=== PATIENT | female | born 1950 | race Caucasian/White ===

== ENCOUNTER → 2019-12-01 13:52 | Outpatient (CLI) | payer MEDICARE, SELFPAY ==
--- NOTE | ~2019-12-01 | MM_ITS ---
EXAMINATION: MM screening [facility] BI w maris HISTORY: Screening mammogram TECHNIQUE: Craniocaudal and mediolateral oblique 3-D tomosynthesis images were obtained and synthetic 2-D images were generated. CAD analysis was submitted and interpreted. COMPARISON: No prior mammogram is currently available for comparison. BREAST PARENCHYMAL COMPOSITION: The breasts are almost entirely fatty. FINDINGS: RIGHT BREAST: An approximately 6 mm mass is present in the anterior third of the outer breast 3.5 cm from the nipple. LEFT BREAST: There is possible architectural distortion in the anterior third of the upper outer quad rant of the breast. IMPRESSION: 1. Bilateral breast findings as described above. 2. Additional mammographic views and possible breast ultrasound are recommended. BI-RADS Category 0: Incomplete: Needs additional imaging evaluation. Reviewed, dictated and finalized at location A. KER IMPRESSION: 1. Bilateral breast findings as described above. 2. Additional mammographic views and possible breast ultrasound are recommended . BI-RADS Category 0: Incomplete: Needs additional imaging evaluation.
--- NOTE | ~2019-12-01 | DEXA_ITS ---
Bone Density Report Name: Calli Tse Age: 69 Sex: Female Ethnicity: White Date of : 1950 Indication: osteopenia; height loss; hysterectomy;postmenopausal Referring Provider: Hayden Sandoval Study: Bone densitometry was performed. Exam Date: December 01, 2019 Accession number: [id number] Bone Density: Region BMD T-score Z-score Classification AP Spine (L1-L4) 1.007 -0.4 1.6 Normal Femoral Neck (Left) 0.798 -0.5 1.2 Normal Total Hip (Left) 0.862 -0.7 0.8 Normal Femoral Neck (Right) 0.722 -1.1 0.6 Osteopenia Total Hip (Right) 0.734 -1.7 -0.3 Osteopenia Total Hip Mean 0.798 -1.2 0.3 Osteopenia World Health Organization criteria for BMD impression classify patients as: Normal (T-score at or above -1.0), Osteopenia (T-score between -1.0 and -2.5), or Osteoporosis (T-score at or below -2.5). 10-year Fracture Risk(1): Major Osteoporotic Fracture 7.6% Hip Fracture 0.7% Reported Risk Factors: [place] (), Neck BMD=0.722, BMI=43.6 (1) FRAX(R) Version 3.08. Fracture probability calculated for an untreated patient. Fracture probability may be lower if the patient has received treatment. Previous Exams: Region Exam Age BMD T-score BMD Change BMD Change Date g/cm2 vs Baseline vs Previous AP Spine(L1-L4) 12/01/2019 69 1.007 -0.4 0.039* 0.039* 05/14/2009 58 0.967 -0.7 Total Hip(Left) 12/01/2019 69 0.862 -0.7 0.060 0.126* 05/14/2009 58 0.736 -1.7 -0.066 -0.066 09/16/2004 54 0.802 -1.1 Total Hip(Right) 12/01/2019 69 0.734 -1.7 -0.029 0.003 05/14/2009 58 0.732 -1.7 -0.031 -0.031 09/16/2004 54 0.763 -1.5 *Denotes significance at 95% confidence level, LSC for AP Spine = 0.022 g/cm2, LSC for Total Hip = 0.027 g/cm2 Clinical Information Provided by Patient: Has the following medical conditions: Hysterectomy Patient maximum height was 67 Menopause Age: 44 No regular weight bearing exercise Drinks caffeinated beverages Onset of menses at age 15 Number of children 2 Impression: The patient has low bone mass, based on the Right Total Hip T-score. The patient has an estimated ten-year risk of hip fracture of 0.7% and an estimated ten-year risk of major fracture of 7.6%, based on the WHO FRAX algorithm. No significant bone loss was observed. Discussion: BONE DENSITY IS LOW AT ONE OR MORE SKELETAL SITES. This
== END ==
PROVIDERS: PCP Family Medicine; Visit Provider Family Medicine
DX: Z12.31 Encounter for screening mammogram for malignant neoplasm of breast (principal); Z78.0 Asymptomatic menopausal state; N63.0 Unspecified lump in unspecified breast; I10 Essential (primary) hypertension
CPT/HCPCS: 77063; 77067; 77080

== ENCOUNTER → 2019-12-16 08:37 | Outpatient (CLI) | payer MEDICARE, SELFPAY ==
--- NOTE | ~2019-12-16 | MMUS_ITS ---
EXAMINATION: MM diagnostic mammo BI, US breast RT limited HISTORY: Approximately 6 mm mass reported in anterior third of outer breast 3.5 cm from nipple and po ssible architectural distortion in anterior third of upper outer left breast on 12/01/2019 screening m ammogram examination TECHNIQUE: Additional 3-D tomosynthesis images of both breasts were performed and synthetic 2-D image s were generated. CAD analysis was submitted and interpreted. High resolution targeted right breast u ltrasound was performed. COMPARISON: 12/01/2019 bilateral digital screening mammogram FINDINGS: MAMMOGRAPHIC FINDINGS: No suspicious mass or architectural distortion, skin thickening or retraction or malignant calcificat ion is evident on the left. There is an approximately 4 mm mammographic irregular mass in the anterior aspect of the mid outer ri ght breast approximately 3 cm from the nipple. ULTRASOUND: At 9:00 3.5 cm from the nipple there is a 3.5 x 5 x 4.3 mm irregular hypoechoic mass without internal vascularity or shadowing. Ultrasound-guided biopsy is recommended considering the irregular margins on mammographic and sonographic examinations. IMPRESSION: 1. 3.5 x 5 x 4.3 mm irregular solid right breast mass at 9:00 3.5 cm from nipple 2. Ultrasound-guided biopsy of right breast mass at 9:00 3.5 cm from nipple is recommended. BI-RADS category 4, suspicious findings. Dr. Wright telephoned the results and ultrasound guided biopsy recommendation for right breast 9:00 les ion to Candida Paez on 12/16/2019 at 1000 hours. Reviewed, dictated and finalized at location A. PRESSURE OPERATOR IMPRESSION: 1. 3.5 x 5 x 4.3 mm irregular solid right breast mass at 9:00 3.5 cm from nippl e 2. Ultrasound-guided biopsy of right breast mass at 9:00 3.5 cm from nipple is recommended. BI-RADS category 4, suspicious findings. Dr. Wright telephoned the results and ultrasound guided biopsy recommendation for right breast 9:00 lesion to Candida Paez on 12/16/2019 at 1000 hours.
== END ==
PROVIDERS: PCP Family Medicine; Visit Provider Physician Assistant
DX: R92.8 Other abnormal and inconclusive findings on diagnostic imaging of breast (principal)
CPT/HCPCS: 76642; 77066

== ENCOUNTER 2020-03-24 00:29 | Outpatient (CLI) | payer MEDICARE, SELFPAY ==
[2020-03-24 17:33] LABS: SARS-CoV-2 RNA PCR Negative
== END 2020-03-24 00:30 | disposition home or self-care (01) ==
LOC: ANHCOVIDDT 00:29
PROVIDERS: PCP Family Medicine; Visit Provider Internal Medicine Gastroenterology
DX: Z01.812 Encounter for preprocedural laboratory examination (principal); Z20.828 Contact with and (suspected) exposure to other viral communicable diseases
CPT/HCPCS: 87635; C9803; U0003

== ENCOUNTER 2020-03-26 00:56 | Day surgery (SDC) | payer MEDICARE, SELFPAY ==
[2020-03-19 14:10] VITALS: BMI 42.0
[2020-03-26 07:40] VITALS: BP 149/96; PULSE 96; RESP 18; TEMP 37; O2SAT 100
[2020-03-26] MEDS: LACTATED RINGERS 1,000 ML 150 ML IV CONT (08:15)
--- NOTE | 2020-03-26 08:21 | WPDANESEPPF ---
Anes - Initial Pre Proc Eval Procedure: Operation Date: 03/26/20 09:00 Proposed Procedures p Screening Colonoscopy - Carter Montano MD Date/Time: 03/26/20 08:21 Surgeon: Carter Montano MD Pre Op Diagnosis: Neoplasm Screening Patient Data Age: 69 Gender: F Height: 5 ft 6 in Weight: 117.7 kg Last Vital Signs Temp 37.0 C 03/26/20 07:40 Pulse 96 03/26/20 07:40 Resp 18 03/26/20 07:40 BP 149/96 H 03/26/20 07:40 Pulse Ox 100 03/26/20 07:40 Allergies Allergy/AdvReac Type Severity Reaction Status Date / Time codeine Allergy Mild Rash Verified 03/26/20 08:01 POISON WAYNE Allergy RASH Uncoded 03/26/20 08:01 Home Medications Medication Instructions Recorded Confirmed Type acetaminophen 650 mg 1,300 mg PO Q12H 09/22/19 03/26/20 History tablet,extended release omeprazole 20 mg capsule,delayed 20 mg PO DAILY 09/22/19 03/19/20 History release ferrous sulfate 325 mg (65 mg 325 mg PO DAILY #30 tablet 12/31/19 03/26/20 Rx iron) tablet atorvastatin 10 mg tablet 10 mg PO DAILY #30 tablet 03/12/20 03/26/20 Rx lisinopril 10 See Rx Instructions .ROUTE 03/16/20 03/19/20 Rx mg-hydrochlorothiazide 12.5 mg .COMPLEX #30 tablet tablet fexofenadine [Shonda Allergy] 60 mg PO Q12H 03/19/20 03/26/20 History melatonin 1 mg PO HS PRN 03/19/20 03/26/20 History Patient hx anesthesia problems: none Family hx anesthesia problems: none PMFSH Past Medical History Medical History Anemia Blood glucose elevated Breast mass, right Elevated liver enzymes Fatty liver GERD (gastroesophageal reflux disease) HTN (hypertension), benign Leukopenia Mixed hyperlipidemia Osteoarthritis UTI (urinary tract infection) Surgical History Surgical History History of Donis-en-Y gastric bypass 2002 Status post hysterectomy with oophorectomy 1995 Status post laparoscopic cholecystectomy 1993 Status post lumbar laminectomy x3 Status post tonsillectomy 1955 Family History Family History Unknown Heart disease Diabetes mellitus Social History Social History Smoking packs per day: 1 Smoking cigarettes per day: 20.0 Years smoked: 20 Smoking pack-years: 20.00 Smoking status: Former smoker Tobacco type: cigarettes Second hand tobacco smoke exposure: No Smoking end date: 10/15/79 Alcohol intake: current Drinks per week: 1 Substance use: never Substance use type: does not use Gender identity (if verbalized by the patient): Female Anes - Eval Final PreProcedure Day of Procedure 03/26/20 08:21 Patient weight: morbidly obese Heart: regular rate and rhythm Lungs: clear to auscultation Airway: Mallampati scale class II Neurological: alert and oriented Last oral intake: >/= 8 hours ASA classification: III Emergent: no Anesthetic plan: proceed Anesthesia type and monitoring: general GIVS and standard monitoring Informed Consent: The patient's anesthetic plan and its attendant risks and benefits were discussed with the patient/family/POA. Questions were solicited and answers provided to the satisfaction of the patient/family/POA.
--- NOTE | 2020-03-26 08:42 | PM.HPGS ---
History of Present Illness History of Present Illness Consent: Risks, benefits, and alternatives have been discussed and questions answered. Patient agrees to proceed with procedure. Chief complaint: Neoplasm Screening Narrative: Calli Tse is a 69 year old female Referred for screening colonoscopy [facility] Past Medical History Medical History Anemia Blood glucose elevated Breast mass, right Elevated liver enzymes Fatty liver GERD (gastroesophageal reflux disease) HTN (hypertension), benign Leukopenia Mixed hyperlipidemia Osteoarthritis UTI (urinary tract infection) Surgical History Surgical History History of Donis-en-Y gastric bypass 2002 Status post hysterectomy with oophorectomy 1995 Status post laparoscopic cholecystectomy 1993 Status post lumbar laminectomy x3 Status post tonsillectomy 1956 Family History Family History Unknown Heart disease Diabetes mellitus Social History Social History Smoking packs per day: 1 Smoking cigarettes per day: 20.0 Years smoked: 20 Smoking pack-years: 20.00 Smoking status: Former smoker Tobacco type: cigarettes Second hand tobacco smoke exposure: No Smoking end date: 10/15/79 Alcohol intake: current Drinks per week: 1 Substance use: never Substance use type: does not use Gender identity (if verbalized by the patient): Female Meds Home Medications and Allergies Home Medications Medication Instructions Recorded Confirmed Type acetaminophen 650 mg 1,300 mg PO Q12H 09/22/19 03/26/20 History tablet,extended release omeprazole 20 mg capsule,delayed 20 mg PO DAILY 09/22/19 03/19/20 History release ferrous sulfate 325 mg (65 mg 325 mg PO DAILY #30 tablet 12/31/19 03/26/20 Rx iron) tablet atorvastatin 10 mg tablet 10 mg PO DAILY #30 tablet 03/12/20 03/26/20 Rx lisinopril 10 See Rx Instructions .ROUTE 03/16/20 03/19/20 Rx mg-hydrochlorothiazide 12.5 mg .COMPLEX #30 tablet tablet fexofenadine [Shonda Allergy] 60 mg PO Q12H 03/19/20 03/26/20 History melatonin 1 mg PO HS PRN 03/19/20 03/26/20 History Allergies Allergy/AdvReac Type Severity Reaction Status Date / Time codeine Allergy Mild Rash Verified 03/26/20 08:01 POISON WAYNE Allergy RASH Uncoded 03/26/20 08:01 Vital Signs Vital Signs - 24 hr 03/26/20 07:40 Temperature 37.0 C Pulse Rate 96 Respiratory Rate 18 Blood Pressure 149/96 H Pulse Oximetry 100 Exam Resp: Auscultation: clear to auscultation bilaterally Cardio: Rate: regular rate Rhythm: regular rhythm GI: GI Palp: Yes Soft to palpation and No Tenderness to palpation present (GI) Assessment and Plan Assessment and plan (1) Colon cancer screening: Code(s): Z12.11 - Encounter for screening for malignant neoplasm of colon Status: Acute Assessment and Plan: Colonoscopy with possible biopsy or polypectomy or cautery or injection of substances.
[2020-03-26] MEDS: SIMETHICONE ORAL SUSPENSION 20 MG/0.3 ML 30 ML BOTTLE 0.6 ML IRRIGATION (09:03)
[2020-03-26 09:13] VITALS: BP 123/69; PULSE 75; RESP 20; O2SAT 99
[2020-03-26 09:23] VITALS: BP 123/49; PULSE 74; RESP 20; O2SAT 100
[2020-03-26 09:33] VITALS: BP 127/69; PULSE 69; RESP 20; O2SAT 100
== END 2020-03-26 09:55 | disposition home or self-care (01) ==
PROVIDERS: PCP Family Medicine; Visit Provider Internal Medicine Gastroenterology
PROC: 0DJD8ZZ Inspection of Lower Intestinal Tract, Via Natural or Artificial Opening Endoscopic (ICD-10-PCS; CPT 45378; principal; 2020-03-26 09:00)
DX: Z12.11 Encounter for screening for malignant neoplasm of colon (principal); I10 Essential (primary) hypertension; E78.2 Mixed hyperlipidemia; K21.9 Gastro-esophageal reflux disease without esophagitis; K76.0 Fatty (change of) liver, not elsewhere classified; D64.9 Anemia, unspecified; Z87.891 Personal history of nicotine dependence; E66.01 Morbid (severe) obesity due to excess calories; Z68.41 Body mass index [BMI] 40.0-44.9, adult
CPT/HCPCS: G0121; J2704; J7120

== ENCOUNTER 2020-04-05 17:29 | Outpatient (CLI) | payer MEDICARE, SELFPAY ==
--- NOTE | ~2020-04-05 | XR_ITS ---
EXAMINATION: XR knee LT 2V DATE: 04/05/2020 17:53 INDICATION: Left knee pain TECHNIQUE: Two views of the left knee were obtained. COMPARISON: None. FINDINGS: Alignment is normal. No fracture or osteochondral lesion. There is moderate tricompartmenta l osteoarthritis characterized by marginal osteophytes an joint space narrowing. No joint effusion/sy novitis. Soft tissues are unremarkable. IMPRESSION: 1. Osteoarthritis without acute osseous abnormality. Reviewed, dictated and finalized at location A.
== END 2020-04-05 17:30 | disposition home or self-care (01) ==
PROVIDERS: PCP Family Medicine; Visit Provider Physician Assistant
DX: M17.12 Unilateral primary osteoarthritis, left knee (principal)
CPT/HCPCS: 73560

== ENCOUNTER 2020-04-20 10:05 | Outpatient (CLI) | payer MEDICARE, SELFPAY ==
--- NOTE | ~2020-04-20 | MMUS_ITS ---
EXAMINATION: US breast biopsy RT w image, MM post biopsy invasive RT DATE: 04/20/2020 11:12 (accession [id number]), 04/20/2020 11:17 (accession [id number]) INDICATION: Indeterminate right breast mass. Ultrasound-guided core biopsy is requested to evaluate for malignancy. TECHNIQUE AND FINDINGS: The risks and potential benefits of the procedure were discussed with the patient including bleeding and infection. A time out was performed. The skin of the right breast was prepared and draped in usua l sterile fashion. 1% lidocaine was used for superficial anesthesia. 1% lidocaine with epinephrine wa s used for deep anesthesia. A vacuum-assisted biopsy gun needle was advanced through to the outer edge of the region of interest from an inferior approach utilizing sonographic guidance. A total of one tissue core samples were obt ained through the lesion. The lesion was no longer visible after the first sampling. A tissue marker clip was then placed at the biopsy site. Hemostasis was achieved. A sterile bandage was applied. The patient tolerated procedure well and there was no evidence of immediate complication. The patient was given verbal instructions to return to the Emergency Department in the event of severe breast pa in or rapid breast enlargement. A two view right breast mammogram was obtained to document tissue mar ker clip placement. IMPRESSION: 1. Successful ultrasound-guided vacuum-assisted biopsy of right breast mass with tissue marker placem ent. Reviewed, dictated and finalized at location A. IMPRESSION: 1. Successful ultrasound-guided vacuum-assisted biopsy of right breast mass wit h tissue marker placement.
== END 2020-04-20 10:06 | disposition home or self-care (01) ==
PROVIDERS: PCP Family Medicine; Visit Provider Surgery
DX: R92.8 Other abnormal and inconclusive findings on diagnostic imaging of breast (principal)
CPT/HCPCS: 19083; 88305

== ENCOUNTER 2020-05-31 13:46 | Outpatient (CLI) | payer MEDICARE, SELFPAY ==
--- NOTE | ~2020-05-31 | US_ITS ---
EXAMINATION: US venous doppler [facility] DATE: 05/31/2020 14:24 INDICATION: Left lower limb localized edema. TECHNIQUE: Grayscale ultrasound images without and with compression and Doppler ultrasound images of the left lower extremity veins were obtained. COMPARISON: None. FINDINGS: The visualized portions of left common femoral vein, profunda (deep) femoral vein, femoral vein, popl iteal vein, peroneal veins, posterior tibial veins, and greater saphenous vein outflow are patent. Th ere is a moderate-sized Escobedo's cyst. IMPRESSION: 1. No deep venous thrombosis. 2. Moderate-sized left Escobedo's cyst. Reviewed, dictated and finalized at location A.
== END 2020-05-31 13:47 | disposition home or self-care (01) ==
LOC: ANHIMG 13:54
PROVIDERS: PCP Family Medicine; Visit Provider Physician Assistant
DX: R60.0 Localized edema (principal); M71.22 Synovial cyst of popliteal space [Baker], left knee
CPT/HCPCS: 93971

== ENCOUNTER 2020-06-16 09:04 | Outpatient (CLI) | payer MEDICARE, SELFPAY ==
--- NOTE | 2020-06-16 09:07 | ECG_ITS ---
Measurements Intervals [place] Rate: 71 P: 22 MD: 191 QRS: 8 QRSD: 79 T: 28 QT: 393 QTc: 430 Interpretive Statements SINUS RHYTHM RSR' IN V1 OR V2, PROBABLY NORMAL VARIANT NORMAL ECG Electronically Signed On 06-16-2020 9:24:22 CDT by Raul Hawkins D.O.
[2020-06-16 09:28] LABS: Hemoglobin 12.6 g/dL (12.0-15.0)
[2020-06-16 09:39] LABS: Anion Gap 8 mmol/L (8-16); Blood Urea Nitrogen 13 mg/dL (7-17); Carbon Dioxide 27 mmol/L (22-30); Chloride 103 mmol/L (98-107); Estimated Glomerular Filt Rate > 60; Glucose 114 mg/dL (65-105); Potassium 4.7 mmol/L (3.4-5.0); Sodium 138 mmol/L (137-145)
== END 2020-06-16 09:05 | disposition home or self-care (01) ==
PROVIDERS: Anesthesiology; PCP Family Medicine; Visit Provider Orthopaedic Surgery
DX: D64.9 Anemia, unspecified (principal); I10 Essential (primary) hypertension; Z01.818 Encounter for other preprocedural examination
CPT/HCPCS: 36415; 80048; 85014; 85018; 93005

== ENCOUNTER 2020-06-21 00:53 | Outpatient (CLI) | payer MEDICARE, SELFPAY ==
--- NOTE | 2020-06-18 14:45 | PM.IMHP ---
H&P: HPI History of Present Illness Date/Time: 06/18/20 14:45 Chief complaint: preop covid Narrative: Calli Tse is a 69 year old female Who presents with left knee pain. Patient has posteriorly and medially in the left knee. This has been ongoing for several months, she reports locking and catching medially with limited activity due to her pain. She reports pain with ambulation twisting or turning squatting kneeling going up and down stairs makes her pain worse. She has tried a course of physical therapy cortisone and anti-inflammatories without significant relief. The patient then underwent an MRI scan which shows lateral meniscus to be intact stabilizing ligaments are also intact but she does have an MCL strain. There is also noted to be a large effusion and a Escobedo cyst. 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 The medial meniscus shows a posterior horn tear. The patient has failed conservative measures and has discuss further treatment options in detail with Dr. Hernández she is aware she has pre-existing osteoarthritis and may not get full relief of her knee pain from knee arthroscopy however she would like to proceed. Review of Systems Review of Systems: All systems reviewed & are unremarkable except as noted in HPI and below PMFSH Past Medical History Medical History Anemia Blood glucose elevated Breast mass, right Cough Edema of left lower extremity Elevated liver enzymes Fatty liver GERD (gastroesophageal reflux disease) HTN (hypertension), benign IFG (impaired fasting glucose) Left knee pain Leukopenia Mixed hyperlipidemia Osteoarthritis UTI (urinary tract infection) Surgical History Surgical History H/O breast biopsy History of Donis-en-Y gastric bypass 2002 Status post hysterectomy with oophorectomy 1995 Status post laparoscopic cholecystectomy 1993 Status post lumbar laminectomy x3 Status post tonsillectomy 1956 Family History Family History Unknown Heart disease Diabetes mellitus Social History Social History Smoking packs per day: 1 Smoking cigarettes per day: 20.0 Years smoked: 20 Smoking pack-years: 20.00 Smoking status: Former smoker Tobacco type: cigarettes Second hand tobacco smoke exposure: No Smoking end date: 10/15/84 Alcohol intake: current Drinks per week: 1 Substance use: never Substance use type: does not use Gender identity (if verbalized by the patient): Female Spiritual care concerns: No Meds Home Medications and Allergies Home Medications Medication Instructions Recorded Confirmed Type acetaminophen 650 mg 1,300 mg PO Q12H PRN 09/22/19 06/14/20 History tablet,extended release omeprazole 20 mg capsule,delayed 20 mg PO QAM 09/22/19 06/14/20 History release ferrous sulfate 325 mg (65 mg 325 mg PO DAILY #30 tablet 04/29/20 06/14/20 Rx iron) tablet levocetirizine 5 mg tablet 5 mg PO HS 05/03/20 06/14/20 History atorvastatin 10 mg PO HS 06/14/20 06/14/20 History hydrochlorothiazide 12.5 mg PO QAM 06/14/20 06/14/20 History ibuprofen 600 mg PO BID PRN 06/14/20 06/14/20 History melatonin 10 mg PO HS 06/14/20 06/14/20 History valsartan 40 mg PO QAM 06/14/20 06/14/20 History Allergies Allergy/AdvReac Type Severity Reaction Status Date / Time codeine Allergy Mild Itching/jayce Verified 06/14/20 13:16 h POISON WAYNE Allergy Mild RASH/ITCHIN Uncoded 06/14/20 13:16 G Exam Narrative: Exam Narrative: The patient is a well-developed well-nourished female no acute distress. She is alert and oriented x3. Normal mood and affect. HEENT exam within normal limits. Heart regular rate rhythm. Lungs clear auscultation. Abdomen b
[2020-06-21 16:32] LABS: SARS-CoV-2 RNA PCR Negative
== END 2020-06-21 00:54 | disposition home or self-care (01) ==
LOC: ANHCOVIDDT 00:53
PROVIDERS: PCP Family Medicine; Visit Provider Orthopaedic Surgery
DX: Z01.812 Encounter for preprocedural laboratory examination (principal); Z20.828 Contact with and (suspected) exposure to other viral communicable diseases
CPT/HCPCS: 87635; C9803; U0003

== ENCOUNTER 2020-06-22 17:21 | Emergency (ER) | payer MEDICARE, SELFPAY ==
--- NOTE | 2020-06-22 17:29 | ED.GENADULT ---
HPI - General Adult General Chief complaint: Neck Pain/Injury Stated complaint: severe neck pain Time Seen by Provider: 06/22/20 17:35 Source: patient and RN notes reviewed Mode of arrival: ambulatory Limitations: no limitations History of Present Illness HPI narrative: 69-year-old female presents with concern for right neck and shoulder tension, spasm, pain. Reports she woke up this morning with pain that has been increasingly worsening throughout the day. Reports she has used ice, Biofreeze. Reports that she is not able to take any medication due to her surgery tomorrow. Denies any other intervention. Denies weakness in any extremity, headache. She denies injury or trauma. Reports history of having neck muscle spasms. MD complaint: Neck pain Related Data Home Medications Medication Instructions Recorded Confirmed acetaminophen 650 mg 1,300 mg PO Q12H PRN 09/22/19 06/14/20 tablet,extended release levocetirizine 5 mg tablet 5 mg PO HS 05/03/20 06/14/20 atorvastatin 10 mg PO HS 06/14/20 06/22/20 hydrochlorothiazide 12.5 mg PO QAM 06/14/20 06/22/20 ibuprofen 600 mg PO BID PRN 06/14/20 06/14/20 melatonin 10 mg PO HS 06/14/20 06/14/20 valsartan 40 mg PO QAM 06/14/20 06/22/20 Allergies Allergy/AdvReac Type Severity Reaction Status Date / Time codeine Allergy Mild Itching/jayce Verified 06/22/20 17:35 h POISON WAYNE Allergy Mild RASH/ITCHIN Uncoded 06/14/20 13:16 G Review of Systems Review of Systems: Narrative: CONSTITUTIONAL: Denies malaise, chills, sweats, or fever. EYES: Denies visual changes CARDIOVASCULAR: Denies chest pain, palpitations, or edema. RESPIRATORY: Denies cough or dyspnea. SKIN: Denies bruising, redness MUSCULOSKELETAL: Reports right shoulder and neck muscle spasm and pain NEUROLOGIC: Denies numbness, weakness, or headache. All systems reviewed & are unremarkable except as noted in HPI and below [facility] Social History Social History Smoking packs per day: 1 Smoking cigarettes per day: 20.0 Years smoked: 20 Smoking pack-years: 20.00 Smoking status: Former smoker Tobacco type: cigarettes Second hand tobacco smoke exposure: No Smoking end date: 10/15/84 Alcohol intake: current Drinks per week: 1 Substance use: never Substance use type: does not use Gender identity (if verbalized by the patient): Female Spiritual care concerns: No Comments At time of signature, agree with nursing past medical, surgical, social and family history. There is no relevant family history pertinent to the presenting complaint Exam Narrative: Exam Narrative: GENERAL: Well-appearing, well-nourished, and in no acute distress. HEAD: Normocephalic, atraumatic. EYES: PERRLA and EOMI. NECK: Supple. No lymphadenopathy. CHEST: Clear to auscultation. No respiratory distress. HEART: Regular rate and rhythm. Distal pulses palpable and equal, cap refill <3 seconds MUSCULOSKELETAL: Normal range of motion and strength in all extremities. Normal sensation in dermatomal distributions with sensitivity to light touch and pain. No midline neck tenderness to palpation. No paraspinal tenderness. SKIN: Warm, dry, no rash. No ecchymosis, erythema, open wounds to neck NEURO: No focal deficits. Alert and oriented x3. Reflexes intact. Normal gait. PSYCH: Normal mood and affect Course Course Emergency Course: Patient is aware of diagnosis, understands and agrees to treatment plan. Anticipatory guidance given. Patient agrees to follow-up as directed and is aware of reasons to seek care at the emergency department. Portions of this record may have been created with voice recognition software Vital Signs Vital signs: Vital Signs Temperature 98.9 F 06/22/20 17:31 Pulse Rate 115 H 06/22/20 17:31 Respiratory Rate 16 06/22/20 17:31 Blood Pressure 155/94 H 06/22/20 17:31 Pulse Oximetry 99 06/22/20 17:31 Temperature 98.9 F 06/22/20 17:31
[2020-06-22 17:31] VITALS: BP 155/94; PULSE 115; RESP 16; TEMP 37.2; O2SAT 99
[2020-06-22 17:55] VITALS: BP 150/90; PULSE 95; RESP 20; O2SAT 100
== END 2020-06-22 17:56 | disposition home or self-care (01) ==
PROVIDERS: Emergency Provider Nurse Practitioner; PCP Family Medicine
DX: M54.2 Cervicalgia (principal); Z87.891 Personal history of nicotine dependence; M25.519 Pain in unspecified shoulder; E78.00 Pure hypercholesterolemia, unspecified; I10 Essential (primary) hypertension; Z98.84 Bariatric surgery status; K21.9 Gastro-esophageal reflux disease without esophagitis; D64.9 Anemia, unspecified
CPT/HCPCS: 99213; G0463

== ENCOUNTER 2020-06-23 00:39 | Day surgery (SDC) | payer MEDICARE, SELFPAY ==
[2020-06-14 13:22] VITALS: BMI 43.2
[2020-06-23] VITALS (8 sets, daily range): BP systolic 115–174; BP diastolic 54–88; PULSE 72–92; RESP 10–20; TEMP 36.2–36.3; O2SAT 95–100
[2020-06-23] MEDS: LACTATED RINGERS 1,000 ML 30 ML IV CONT (06:30)
[2020-06-23] MEDS: ACETAMINOPHEN 500 MG TABLET 1000 MG PO (06:52)
[2020-06-23] MEDS: KETOROLAC 15 MG/ML VIAL (*BKC) IV PUSH (06:53)
--- NOTE | 2020-06-23 06:55 | WPDANESEPPF ---
Anes - Initial Pre Proc Eval Procedure: Operation Date: 06/23/20 07:30 Proposed Procedures p Left Knee Arthroscopy, Partial Medial Meniscectomy,Proceed As Indicated - Дмитрий Hernández MD Date/Time: 06/23/20 06:55 Surgeon: Дмитрий Hernández MD Pre Op Diagnosis: medial meniscus tear left knee Patient Data Age: 69 Gender: F Height: 1.65 m Weight: 120.1 kg Allergies Allergy/AdvReac Type Severity Reaction Status Date / Time codeine Allergy Mild Itching/jayce Verified 06/23/20 06:00 h POISON WAYNE Allergy Mild RASH/ITCHIN Uncoded 06/23/20 06:00 G Home Medications Medication Instructions Recorded Confirmed Type acetaminophen 650 mg 1,300 mg PO Q12H PRN 09/22/19 06/23/20 History tablet,extended release ferrous sulfate 325 mg (65 mg 325 mg PO DAILY #30 tablet 04/29/20 06/23/20 Rx iron) tablet levocetirizine 5 mg tablet 5 mg PO HS 05/03/20 06/23/20 History atorvastatin 10 mg PO HS 06/14/20 06/23/20 History hydrochlorothiazide 12.5 mg PO QAM 06/14/20 06/23/20 History ibuprofen 600 mg PO BID PRN 06/14/20 06/23/20 History melatonin 10 mg PO HS 06/14/20 06/23/20 History valsartan 40 mg PO QAM 06/14/20 06/23/20 History tramadol 100 mg PO Q6H PRN 06/23/20 06/23/20 History ECG: Date of Service: 06/16/20 Procedure(s): CA 12 lead EKG Accession Number(s): [id number] cc: ~ Measurements Intervals [place] Rate: 71 P: 22 MS: 191 QRS: 8 QRSD: 79 T: 28 QT: 393 QTc: 430 Interpretive Statements SINUS RHYTHM RSR' IN V1 OR V2, PROBABLY NORMAL VARIANT NORMAL ECG Electronically Signed On 06-16-2020 9:24:22 CDT by Raul Hawkins D.O. Dictated By: Raul Hawkins DO 06/16/20 0943 Patient hx anesthesia problems: none Family hx anesthesia problems: none PMFSH Past Medical History Medical History (Updated 06/23/20 @ 06:56 by Tor Louis MD) Anemia Blood glucose elevated Breast mass, right Cough Edema of left lower extremity Elevated liver enzymes Fatty liver GERD (gastroesophageal reflux disease) HTN (hypertension), benign IFG (impaired fasting glucose) Left knee pain Leukopenia Mixed hyperlipidemia Morbid obesity with BMI of 40.0-44.9, adult Osteoarthritis UTI (urinary tract infection) Surgical History Surgical History H/O breast biopsy History of Donis-en-Y gastric bypass 2002 Status post hysterectomy with oophorectomy 1995 Status post laparoscopic cholecystectomy 1993 Status post lumbar laminectomy x3 Status post tonsillectomy 1956 Social History Social History Smoking packs per day: 1 Smoking cigarettes per day: 20.0 Years smoked: 20 Smoking pack-years: 20.00 Smoking status: Former smoker Tobacco type: cigarettes Second hand tobacco smoke exposure: No Smoking end date: 10/15/79 Alcohol intake: current Drinks per week: 1 Substance use: never Substance use type: does not use Living arrangements: with friend(s) Gender identity (if verbalized by the patient): Female Spiritual care concerns: No Anes - Eval Final PreProcedure Day of Procedure 06/23/20 06:55 Patient weight: morbidly obese Heart: regular rate and rhythm Lungs: clear to auscultation and normal air movement Airway: Mallampati scale class II Neurological: alert and oriented Last oral intake: >/= 8 hours ASA classification: III Emergent: no Anesthetic plan: proceed Anesthesia type and monitoring: general LMA and ETT Informed Consent: The patient's anesthetic plan and its attendant risks and benefits were discussed with the patient/family/POA. Questions were solicited and answers pro
--- NOTE | 2020-06-23 07:11 | WPDHPUPDATE1 ---
History and Physical Update Update Date/Time: 06/23/20 07:11 History and Physical has been reviewed, including an updated exam of the patient. There are NO changes in the patient's condition. Risks, benefits, and alternatives have been discussed and questions answered. Patient agrees to proceed with procedure.
[2020-06-23] MEDS: ceFAZolin 3 GM/D5W 100 ML 100 ML IVPB (07:25)
[2020-06-23] MEDS: LIDO 1%/EPINEPHRINE 1:100,000 20 ML VIAL INFILTRATE (07:41)
--- NOTE | 2020-06-23 08:09 | PM.PROC ---
Procedure Note - Detailed Date of procedure: 06/23/20 Pre-op diagnosis: medial meniscus tear left knee Post-op diagnosis: same Procedure performed: [Left] knee arthroscopy with partial meniscetomy Description of procedure: Patient brought to the operating room and anesthetic was administered. The knee was steriley prepped and drapped in the usual manner. Standard portals were used. Superior medial portal was used for the outflow cannula, inferior lateral portal was used for the scope, inferior medial portal was used for the instruments. Arthroscopy was performed, the patellar femoral joint degenerative changes. The medial compartment showed a complex tear. The lateral compartment showed fraying. The ACL was intact. Using baskets and keyona the meniscal tear was trimmed back to a stable base so the nothing further could be pulled into the joint. Any loose or delaminated fragments were gently trimmed to a stable base. At this point the instruments were withdrawn, sutures placed and patient left the operating room in satisfactory condition. Anesthesia: GETA Surgeon: Дмитрий Hernández MD Estimated blood loss (mL): 20 Drains: No Packing: No Pathology: none sent Complications: No immediate complications Condition: stable Disposition: PACU
== END 2020-06-23 09:50 | disposition home or self-care (01) ==
PROVIDERS: PCP Family Medicine; Visit Provider Orthopaedic Surgery
PROC: (CPT 29870; principal; 2020-06-23 07:30)
DX: M23.332 Other meniscus derangements, other medial meniscus, left knee (principal); D64.9 Anemia, unspecified; I10 Essential (primary) hypertension; K76.0 Fatty (change of) liver, not elsewhere classified; K21.9 Gastro-esophageal reflux disease without esophagitis; E78.2 Mixed hyperlipidemia; E66.01 Morbid (severe) obesity due to excess calories; Z68.41 Body mass index [BMI] 40.0-44.9, adult; Z98.84 Bariatric surgery status; Z87.891 Personal history of nicotine dependence
CPT/HCPCS: 29881; 36415; 80048; 85014; 85018; 93005; A9270; J0690; J1100; J1885; J2250; J2405; J2704; J3010; J7120

== ENCOUNTER 2020-09-25 06:46 | Outpatient (NON) | payer MEDICARE, SELFPAY ==
[2020-09-27 18:35] LABS: SARS-CoV-2 RNA PCR Positive
== END 2020-09-25 06:47 ==
LOC: ANHCOVIDDT 06:49
PROVIDERS: PCP Family Medicine; Visit Provider Family Medicine
DX: U07.1 COVID-19 (principal)
CPT/HCPCS: 87635; C9803; U0003

== ENCOUNTER → 2022-08-02 13:41 | Outpatient (CLI) | payer OTHER, SELFPAY ==
--- NOTE | ~2022-08-02 | XR_ITS ---
EXAM: XR foot LT min 3V DATE: 08/02/2022 13:57 HISTORY: no injury left foot pain across all metatarsals . COMPARISON: None available. FINDINGS: Decreased mineralization. No fracture or dislocation. No lytic or blastic lesion. Mild dipti lux valgus. Mild degenerative change at the first MTP joint. No erosion or periosteal change. Soft ti ssues within normal limits. IMPRESSION: No acute osseous finding in the left foot. Reviewed, dictated and finalized at location K.
== END ==
PROVIDERS: PCP Family Medicine; Visit Provider Nurse Practitioner Family
DX: M79.672 Pain in left foot (principal)
CPT/HCPCS: 73630

== ENCOUNTER → 2024-06-23 09:25 | Outpatient (REF) | payer MEDICARE, SELFPAY | LOC: ANHLAB 09:25 | PROVIDERS: PCP Family Medicine; Visit Provider Plastic Surgery | DX: C43.71 Malignant melanoma of right lower limb, including hip (principal); L82.1 Other seborrheic keratosis | CPT/HCPCS: 88305 ==

== ENCOUNTER → 2024-07-28 14:29 | Outpatient (REF) | payer MEDICARE, SELFPAY | LOC: ANHLAB 14:29 | PROVIDERS: PCP Family Medicine; Visit Provider Physician Assistant Surgical | DX: D48.5 Neoplasm of uncertain behavior of skin (principal) | CPT/HCPCS: 88305; 88342 ==

== ENCOUNTER 2025-03-09 10:04 | Emergency (ER) | payer MEDICARE, SELFPAY ==
--- NOTE | ~2025-03-09 | XR_ITS ---
HISTORY: Twisting injury, fall yesterday COMPARISON: 04/05/2020 TECHNIQUE: 3 views of the left knee were performed FINDINGS: No acute or subacute fracture, erosion, lytic or sclerotic lesion. Medial and lateral tibiofemoral joint space narrowing is identified. A small suprapatellar joint effusion is identified (an interval change from prior). The infrapatellar joint space is clear. IMPRESSION: Degenerative disease, unchanged now with development of a suprapatellar joint effusion, without acute fracture. Reviewed, dictated and finalized at location A. IMPRESSION: Degenerative disease, unchanged now with development of a suprapat ellar joint effusion, without acute fracture.
--- NOTE | ~2025-03-09 | XR_ITS ---
HISTORY: Twisting injury, fall yesterday COMPARISON: None TECHNIQUE: 3 views of the left ankle were performed FINDINGS: No acute fracture or dislocation. Mild anterolateral soft tissue swelling. The ankle mortise is preserved. Bone mineralization is age-appropriate. IMPRESSION: Soft tissue swelling, without acute fracture. Reviewed, dictated and finalized at location A.
[2025-03-09 10:17] VITALS: BP 144/61; PULSE 62; RESP 16; TEMP 37.1; O2SAT 98
--- NOTE | 2025-03-09 10:31 | ED.LOWEXIN ---
HPI - Extremity Injury (Lower) General Chief Complaint: Extremity Injury, Lower Stated Complaint: fell on left leg and ankle Time Seen by Provider: 03/09/25 10:41 Source: patient, RN notes reviewed and old records reviewed Mode of arrival: ambulatory Limitations: no limitations History of Present Illness HPI Narrative: 74-year-old female presents to the [facility] with complaints of left knee and left ankle pain. States that she slipped on a board yesterday twisted her knee 1 way ankle the opposite. Has been taking ibuprofen and Tylenol. Mild swelling noted to the lateral ankle and lateral knee. Onset (ago): day(s) (1) Related Data Home Medications ?Medication ?Instructions ?Recorded ?Confirmed ?Last Taken ?Type melatonin 10 mg tablet 10 mg PO HS 06/14/20 12/10/24 06/18/20 History aspirin 81 mg capsule 81 mg PO DAILY 04/30/24 12/10/24 Unknown History omeprazole 20 mg capsule,delayed 20 mg PO DAILY 04/30/24 12/10/24 Unknown History release Allergies Allergy/AdvReac Type Severity Reaction Status Date / Time codeine Allergy Mild Itching/jayce Verified 03/09/25 10:39 h poison syed extract Allergy Mild Rash Verified 03/09/25 10:39 Review of Systems Review of Systems: All systems reviewed & are unremarkable except as noted in HPI and below Constitutional: Constitutional: Reports no additional constitutional complaints ENT: Reports system reviewed and no additional complaints, except as documented Cardiovascular: Cardiovascular: Reports no additional cardiovascular complaints, Denies chest pain and Denies dyspnea Respiratory: Respiratory: Reports no additional respiratory complaints, Denies chest congestion, Denies cough and Denies dyspnea Musculoskeletal: Musculoskeletal: Reports as per HPI, Reports arthralgias and Reports joint swelling Integumentary/Breasts: Skin/Breast: Reports system reviewed and no additional complaints, except as docu [facility] Past Medical History Medical History Neuropathy Lipoma Skin lesion Screening for osteoporosis CHF (congestive heart failure) Diabetes Screening for thyroid disorder Edema of left lower extremity Left knee pain Cough IFG (impaired fasting glucose) Anemia Breast mass, right Blood glucose elevated Fatty liver Elevated liver enzymes Mixed hyperlipidemia Leukopenia UTI (urinary tract infection) Osteoarthritis GERD (gastroesophageal reflux disease) HTN (hypertension), benign Surgical History Surgical History H/O breast biopsy Status post hysterectomy with oophorectomy 1995 Status post laparoscopic cholecystectomy 1993 Status post lumbar laminectomy x3 Status post tonsillectomy 1956 History of Donis-en-Y gastric bypass 2002 Family History Family History Unknown Heart disease Diabetes mellitus Social History Social History Smoking packs per day: 1 Smoking cigarettes per day: 20.0 Years smoked: 20 Smoking pack-years: 20.00 Smoking status: Former smoker Tobacco type: cigarettes Second hand tobacco smoke exposure: No Smoking end date: 10/15/79 Alcohol intake: current Drinks per week: 1 Alcohol use details: socially Substance use: never Substance use type: does not use Do You Feel Safe in your Home?: Yes Lack of Transportation: No Lack of Food: Never True Current Housing: I Have Housing Concerned About Future Housing: No Difficulty Paying Gas/Electric Bills: No Difficulty Paying for Meds: No Currently Unemployed: No Education: High School Diploma/GED Difficulty w/ Childcare or Family Care: No Living arrangements: with friend(s) Occupation/Education: retired Gender identity (if verbalized by the patient): Female Sexual Orientation (if Verbalized by the Patient): Straight or Heterosexual Spiritual care concerns: No Comments At the time of my signature, I reviewed and agree with the nursing past medical, surgical, social, and family history. There is no relevant family history pertinent to the patient complaint. Exam Const: General: cooperative, healthy appearing, comfortable, no acute distress, well developed, alert and well nourished Nutritional Appearance: well nourished and obese Orientation/consciousness: patient oriented x3 Limitations: no limitations HENMT: Head: normal to inspection Eyes: General: appearance normal, both eyes and all related structures Alignment and Position: alignment normal Neck: Neck: normal visual inspection, full ROM, no lymphadenopathy and no meningeal signs Chest: Chest palpation & inspection: normal inspection of the chest Resp: Effort & Inspection: normal respiratory effort and able to speak in complete sentences Cardio: Rate: regular rate Back/Spine/Pelvis: Back: No back tenderness Skin: General skin exam: normal color and no rashes or lesions noted Neuro: General: patient oriented x3, gait normal, moves all extremities and no meningeal signs Cognition (Neuro): normal cognition Speech: normal speech Gait exam (Neuro): Normal gait present Extrem: General: normal to inspection, full ROM, capillary refill normal and normal gait Left lower extremity: full ROM, normal capillary refill, knee Details: tenderness, swelling, normal ROM and knee ligament exam normal; no abrasions, no lacerations, no ecchymosis and no penetrating wound, lower leg Details: normal to inspection; no localized swelling and no crepitus, ankle Details: tenderness Location: of the lateral malleolus and swelling Details: laterally and foot Details: normal capillary refill Psych: Appearance: grossly normal and well kempt Mental Status: mental status grossly normal Speech and movement: Normal speech and movement present and Clear speech present Affect: normal affect Attitude: cooperative Course Course Level of Care: Express Care Visit Vital Signs Vital signs: Vital Signs Temperature 98.7 F 03/09/25 10:17 Pulse Rate 62 03/09/25 10:17 Respiratory Rate 16 03/09/25 10:17 Blood Pressure 144/61 H 03/09/25 10:17 Pulse Oximetry 98 03/09/25 10:17 Oxygen Delivery Room Air 03/09/25 10:17 Temperature 98.7 F 03/09/25 10:17 Pulse Rate 62 03/09/25 10:17 Respiratory Rate 16 03/09/25 10:17 Blood Pressure 144/61 H 03/09/25 10:17 Pulse Oximetry 98 03/09/25 10:17 Oxygen Delivery Room Air 03/09/25 10:17 Reviewed MDM - Extremity Injury (Lower) MDM Narrative Medical decision making narrative: Patient sitting in exam. Patient is nontoxic, vitals stable. Patient presents with left ankle and knee pain after slip fall and twisting injury. X-ray negative. Patient appropriate for outpatient treatment with close follow-up Discharge instructions reviewed with patient, as well as provided in writing per nursing staff. The instructions also include specific and strict return/GO TO THE ER as well as f/u information. All questions have been answered, and the patient deny any further questions with discharge and discharge plan. Some parts of this dictation were generated by voice recognition software and may contain typographical and/or grammatical inaccuracies. Differential Diagnosis Differential diagnosis: Likely ankle sprain and strain, ankle fracture and other (Knee sprain) Imaging Data Radiologist's impression: HISTORY: Twisting injury, fall yesterday COMPARISON: 04/05/2020 TECHNIQUE: 3 views of the left knee were performed FINDINGS: No acute or subacute fracture, erosion, lytic or sclerotic lesion. Medial and lateral tibiofemoral joint space narrowing is identified. A small suprapatellar joint effusion is identified (an interval change from prior). The infrapatellar joint space is clear. IMPRESSION: Degenerative disease, unchanged now with development of a suprapatellar joint effusion, without acute fracture. HISTORY: Twisting injury, fall yesterday COMPARISON: None TECHNIQUE: 3 views of the left ankle were performed FINDINGS: No acute fracture or dislocation. Mild anterolateral soft tissue swelling. The ankle mortise is preserved. Bone mineralization is age-appropriate. IMPRESSION: Soft tissue swelling, without acute fracture. Critical Care Time Critical Care Time Critical Care Time: No Discharge Plan Discharge Clinical Impression: Left ankle sprain, Left knee sprain, History of fall Patient Disposition: Home Condition: Stable Instructions: Antibiotic Form, Ankle Sprain (DC), Knee Sprain (ED) Additional Instructions: Your Xray did not show a fracture. Wear good supportive shoes at all times. Ice should be applied to help reduce swelling. It can be used for 20 to 30 minutes, every 2-3 hours while awake. Do not apply ice directly to your skin. ankle braces or clair-wraps will help support your injured ankle. You can alternate ibuprofen 600mg and Tylenol 650mg every 4 hours as needed for pain Please schedule a follow-up visit with your personal physician for further evaluation and treatment within 2 weeks especially if symptoms persist. For new or worsening symptoms go directly to the emergency room Patient Language: Danish Prescriptions: No Action aspirin 81 mg capsule 81 mg PO DAILY omeprazole 20 mg capsule,delayed release(DR/EC) 20 mg PO DAILY gabapentin 300 mg capsule 600 mg PO TID Qty: 180 4RF Jardiance 10 mg tablet 10 mg PO DAILY Qty: 30 6RF melatonin 10 mg Tablet 10 mg PO HS valsartan 40 mg tablet 40 mg PO QAM Qty: 90 2RF pramipexole 0.125 mg tablet See Rx Instructions .ROUTE .COMPLEX Qty: 90 2RF Dose Instruction: TAKE 1 TABLET BY MOUTH EVERY NIGHT AT BEDTIME Rx Instructions: TAKE 1 TABLET BY MOUTH EVERY NIGHT AT BEDTIME metformin 500 mg tablet See Rx Instructions .ROUTE .COMPLEX Qty: 180 1RF Dose Instruction: TAKE 1 TABLET BY MOUTH TWICE DAILY Rx Instructions: TAKE 1 TABLET BY MOUTH TWICE DAILY metoprolol succinate 25 mg tablet extended release 24 hr 25 mg PO DAILY Qty: 90 1RF atorvastatin [Lipitor] 40 mg tablet 40 mg PO DAILY Qty: 90 1RF sertraline 50 mg tablet 50 mg PO DAILY Qty: 90 1RF ferrous sulfate 325 mg (65 mg iron) tablet 325 mg PO DAILY Qty: 90 1RF potassium chloride 10 mEq tablet,ER particles/crystals 10 meq PO BID Qty: 60 2RF bumetanide 1 mg tablet 1 mg PO DAILY Qty: 30 1RF Follow-up/Referrals: Javier Live MD [Primary Care Provider] - 1 Week ([facility] care follow up) Time of Disposition: 11:06
== END 2025-03-09 11:10 | disposition home or self-care (01) ==
PROVIDERS: Emergency Provider Nurse Practitioner; PCP Family Medicine
DX: S93.402A Sprain of unspecified ligament of left ankle, initial encounter (principal); S83.92XA Sprain of unspecified site of left knee, initial encounter; W01.0XXA Fall on same level from slipping, tripping and stumbling without subsequent striking against object, initial encounter; E11.40 Type 2 diabetes mellitus with diabetic neuropathy, unspecified; I11.0 Hypertensive heart disease with heart failure; I50.9 Heart failure, unspecified; K76.0 Fatty (change of) liver, not elsewhere classified; E78.2 Mixed hyperlipidemia; M19.90 Unspecified osteoarthritis, unspecified site; K21.9 Gastro-esophageal reflux disease without esophagitis; Z98.84 Bariatric surgery status; Z87.891 Personal history of nicotine dependence; Z79.82 Long term (current) use of aspirin; Z79.84 Long term (current) use of oral hypoglycemic drugs
CPT/HCPCS: 73562; 73610; 99214; G0463